=== PATIENT | female | born 1990 | race Caucasian/White ===

== ENCOUNTER 2016-12-18 16:27 | Emergency (ER) | payer OTHER ==
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
--- NOTE | 2016-12-18 17:31 | ED MAR SUMMARY ---
..... Medication Administration Record [facility] [address] [place], [place] [id number] Patient: BROOKS GAMEZ Visit ID: [id number] 26y, F Weight: 53.0 kg Height/Length: 60 in BMI: 22.8 ALLERGIES: No Known Drug Allergy
--- NOTE | 2016-12-18 17:31 | ED MED RECONCILIATION SUMMARY ---
Patient: BROOKS GAMEZ Medication Reconciliation Report [facility] VisitID: [id number] [address] [place] [address] 26y, F Registration Date/Time: 12/18/2016 Weight: 53.0 kg Height/Length: 60 in. BMI: 22.8 ALLERGIES: No Known Drug Allergy The patient's Home Medications are listed below: NONE. The source(s) of the original Home Medication information: Not obtained. The following Medications were given to the patient in the Emergency Department: None. The following Medications were prescribed to the patient: Naproxen 500 mg tablets: take 1 orally every 12 hours as needed for pain. Dispense twenty (20). No refills. -- Valerie Us A.R.N.P. Flexeril 10 mg: Take 1 orally every 8 hours as needed for muscle spasm. Dispense twenty (20). No refills. Substitution is permissible. -- Valerie Us A.R.N.P.
--- NOTE | 2016-12-18 17:31 | ED MAR SUMMARY ---
..... Medication Administration Record [facility] [address] [place], [place] [id number] Patient: BROOKS GAMEZ Visit ID: [id number] 26y, F Weight: 53.0 kg Height/Length: 60 in BMI: 22.8 ALLERGIES: No Known Drug Allergy
--- NOTE | 2016-12-18 17:31 | ED MED RECONCILIATION SUMMARY ---
Patient: BROOKS GAMEZ Medication Reconciliation Report [facility] VisitID: [id number] [address] [place] [address] 26y, F Registration Date/Time: 12/18/2016 Weight: 53.0 kg Height/Length: 60 in. BMI: 22.8 ALLERGIES: No Known Drug Allergy The patient's Home Medications are listed below: NONE. The source(s) of the original Home Medication information: Not obtained. The following Medications were given to the patient in the Emergency Department: None. The following Medications were prescribed to the patient: Naproxen 500 mg tablets: take 1 orally every 12 hours as needed for pain. Dispense twenty (20). No refills. -- Valerie Us A.R.N.P. Flexeril 10 mg: Take 1 orally every 8 hours as needed for muscle spasm. Dispense twenty (20). No refills. Substitution is permissible. -- Valerie Us A.R.N.P.
== END 2016-12-18 17:25 | disposition home or self-care (01) ==
LOC: ED SRH 16:27
DX: S16.1XXA Strain of muscle, fascia and tendon at neck level, initial encounter (principal); V43.52XA Car driver injured in collision with other type car in traffic accident, initial encounter; Y93.89 Activity, other specified; Y92.410 Unspecified street and highway as the place of occurrence of the external cause; Y99.9 Unspecified external cause status